=== PATIENT | female | born 1955 | race Caucasian/White ===

== ENCOUNTER → 2019-03-10 | Outpatient (CLI) | payer MEDICARE ==
--- NOTE | 2019-03-19 10:13 | MM ---
Reason for exam: screening (asymptomatic). Last mammogram was performed 1 year and 7 months ago. History: Patient is postmenopausal. Family history of breast cancer in 2 aunts. Took estrogen for 2 years beginning at age 40. Physical Findings: A clinical breast exam by your physician is recommended on an annual basis and results should be correlated with mammographic findings. MG Screening Mammo w CAD Bilateral CC and MLO view(s) were taken. Prior study comparison: August 18, 2017, mammogram. August 06, 2016, mammogram. There are scattered fibroglandular densities. Benign appearing bilateral calcifications. No suspicious abnormality. ASSESSMENT: Benign, BI-RAD 2 RECOMMENDATION: Routine screening mammogram of both breasts in 1 year.
== END | disposition home or self-care (01) ==
LOC: RADMAMWWP 07:27
PROVIDERS: ATTEND Family Medicine
DX: Z12.31 Encounter for screening mammogram for malignant neoplasm of breast (principal)
CPT/HCPCS: 77067

== ENCOUNTER → 2019-10-23 | Outpatient (CLI) | payer MEDICARE | END | disposition home or self-care (01) | LOC: LABWHC1 09:52 | PROVIDERS: ATTEND Surgery | DX: U07.1 COVID-19 (principal) | CPT/HCPCS: 87635 ==

== ENCOUNTER → 2019-10-25 | Day surgery (SDC) | payer MEDICARE ==
[2019-10-22 09:25] VITALS: BMI 32.7
[~2019-10-25] MED LIST: LACTATED RINGERS 1,000 ML IV SCH; LIDOCAINE 1% (10MG/ML) FOR IV START INTRADERMA PRN; PROPOFOL 10 MG/ML 20 ML VIAL IV ONE
[2019-10-25 07:58] VITALS: TEMP 98.5
[2019-10-25 08:00] LABS: Glucose,Whole Blood 171 mg/dL (75-99)
--- NOTE | 2019-10-25 08:50 | P.GSHP ---
History of Present Illness H&P Date: 10/25/19 Chief Complaint: GERD Is a 63-year-old female GERD. Patient presents today for EGD. Past Medical History Past Medical History: Diabetes Mellitus, GERD/Reflux, Hyperlipidemia, Hypertension, Mitral Valve Prolapse (MVP) Additional Past Medical History / Comment(s): Hx stomach ulcer; c/o burning in stomach for few months now. Hx elev liver enzymes, no known cause. History of Any Multi-Drug Resistant Organisms: None Reported Past Surgical History: Appendectomy, Hysterectomy, Joint Replacement, Orthopedic Surgery Additional Past Surgical History / Comment(s): EGD. Colonoscopy. Total Juvencio knees. CTR Rt wrist. Cataracts Past Anesthesia/Blood Transfusion Reactions: No Reported Reaction Smoking Status: Former smoker - Past Family History Father Family Medical History: Cancer Additional Family Medical History / Comment(s): stomach cancer Mother Sister(s) Family Medical History: Cancer, Deep Vein Thrombosis (DVT) Additional Family Medical History / Comment(s): Mother & Sisters x2 lung, 1 sister had brain cancer Brother(s) Family Medical History: Cancer Additional Family Medical History / Comment(s): lung cancer Medications and Allergies Home Medications Medication Instructions Recorded Confirmed Type Aspirin [Adult Low Dose Aspirin EC] 81 mg PO DAILY 09/09/19 10/25/19 History Cholecalciferol [Vitamin D3 (25 1,000 unit PO DAILY 09/09/19 10/25/19 History Mcg = 1000 Iu)] Citalopram Hydrobromide 40 mg PO DAILY 09/09/19 10/25/19 History [Citalopram HBr] Fenofibrate Nanocrystallized 145 mg PO DAILY 09/09/19 10/25/19 History [Fenofibrate] Lisinopril [Zestril] 10 mg PO DAILY 09/09/19 10/25/19 History Metoprolol Tartrate [Lopressor] 25 mg PO BID 09/09/19 10/25/19 History Multivitamins, Thera [Multivitamin 1 tab PO DAILY 09/09/19 10/25/19 History (formulary)] Omeprazole [PriLOSEC] 20 mg PO AC-BID 09/09/19 10/25/19 History Soy Isofla/Blk Cohosh/Mag Bark 155 mg PO DAILY 09/09/19 10/25/19 History [Estroven 155 mg Capsule] metFORMIN HCL [Glucophage] 1,000 mg PO HS 09/09/19 10/25/19 History Allergies Allergy/AdvReac Type Severity Reaction Status Date / Time hydrocodone Allergy Itching Verified 10/25/19 07:37 morphine Allergy Nausea & Verified 10/25/19 07:37 Vomiting Penicillins Allergy Rash/Hives Verified 10/25/19 07:37 Sulfa (Sulfonamide Allergy Rash/Hives Verified 10/25/19 07:37 Antibiotics) vancomycin Allergy Dyspnea Verified 10/25/19 07:37 Surgical - Exam Vital Signs Temp Pulse Resp BP Pulse Ox 98.5 F 78 18 144/76 97 10/25/19 07:56 10/25/19 07:56 10/25/19 07:56 10/25/19 07:56 10/25/19 07:56 - General well developed, well nourished, no distress - Eyes PERRL - ENT normal pinna - Neck no masses - Respiratory normal expansion - Cardiovascular Rhythm: regular - Abdomen Abdomen: soft, non tender Results - Labs Abnormal Lab Results - Last 24 Hours (Table) 10/25/19 Range/Units 07:54 POC Glucose (mg/dL) 171 H (75-99) mg/dL Assessment and Plan Assessment: GERD. We'll perform EGD.
--- NOTE | 2019-10-25 08:57 | P.OP ---
Date of Procedure: 10/25/19 Preoperative Diagnosis: GERD Postoperative Diagnosis: Antral gastritis Mild esophagitis Procedure(s) Performed: EGD Anesthesia: MAC Surgeon: Jairo Rodríguez Pathology: other (Antrum, esophagus) Condition: stable Disposition: PACU Description of Procedure: Patient's placed on the endoscopy table in the lateral position. She received IV sedation. The gastroscope placed oropharynx and passed in the esophagus into the stomach. Scope then placed through the pylorus. The first and second portion of the duodenum appeared normal. Scope summer back antrum was mildly inflamed. A biopsies performed. The scope was unretroflexed and remainder of the stomach appeared normal. Patient did very small hiatal hernia. The GE junction was at 39 cm. The distal esophagus appeared mildly inflamed a biopsies performed. The proximal esophagus appeared normal. Scope withdrawn for patient.
[2019-10-25 09:01] VITALS: RESP 17
[2019-10-25 09:17] VITALS: BP 134/87; PULSE 73
--- NOTE | 2019-10-25 12:32 | NM ---
EXAMINATION TYPE: NM hepatobiliary w CCK DATE OF EXAM: 10/25/2019 COMPARISON: NONE HISTORY: Indigestion and abdominal pain. TECHNIQUE: After the intravenous administration of 4.14 mCi Tc 99m Mebrofenin hepatobiliary scintigra phy is performed. Immediate images post injection. FINDINGS: There is satisfactory initial accumulation of tracer by the liver. The gallbladder is visualized wit hin 10 minutes. At one hour CCK was administered, patient was injected with 1.9 mcg of Kinevac, and g allbladder ejection fraction is calculated at 13 %, abnormally low. Therefore there is no scintigrap hic evidence of cystic or common bile duct obstruction to suggest acute cholecystitis or gallbladder dyskinesia. IMPRESSION: Biliary dyskinesia with abnormally low biliary ejection fraction of 13%. No scintigraphic evidence of acute or chronic cholecystitis.
== END ==
LOC: ORWHC2ENDO 07:29
PROVIDERS: ATTEND Surgery
DX: K29.50 Unspecified chronic gastritis without bleeding (principal); K21.0 Gastro-esophageal reflux disease with esophagitis; K44.9 Diaphragmatic hernia without obstruction or gangrene; I10 Essential (primary) hypertension; I34.1 Nonrheumatic mitral (valve) prolapse; E78.5 Hyperlipidemia, unspecified; E11.9 Type 2 diabetes mellitus without complications; Z88.0 Allergy status to penicillin; Z88.2 Allergy status to sulfonamides; Z88.1 Allergy status to other antibiotic agents; Z88.5 Allergy status to narcotic agent; Z79.82 Long term (current) use of aspirin; Z79.899 Other long term (current) drug therapy; Z79.84 Long term (current) use of oral hypoglycemic drugs; Z87.11 Personal history of peptic ulcer disease; Z90.710 Acquired absence of both cervix and uterus; Z90.49 Acquired absence of other specified parts of digestive tract; Z96.653 Presence of artificial knee joint, bilateral; Z98.49 Cataract extraction status, unspecified eye; Z87.891 Personal history of nicotine dependence; K82.8 Other specified diseases of gallbladder; Z80.0 Family history of malignant neoplasm of digestive organs; Z82.49 Family history of ischemic heart disease and other diseases of the circulatory system; Z80.1 Family history of malignant neoplasm of trachea, bronchus and lung; Z80.8 Family history of malignant neoplasm of other organs or systems
CPT/HCPCS: 78227; 43239; A9537; J2805; J2704; 88305

== ENCOUNTER → 2019-11-05 | Outpatient (CLI) | payer MEDICARE | END | disposition home or self-care (01) | LOC: LABWHC1 09:39 | PROVIDERS: ATTEND Surgery | DX: Z11.59 Encounter for screening for other viral diseases (principal) | CPT/HCPCS: 87635 ==

== ENCOUNTER 2019-11-08 07:57 | Day surgery (SDC) | payer MEDICARE ==
[2019-11-05 13:15] VITALS: BMI 33.3
[~2019-11-08 07:57] MED LIST changes: +ACETAMINOPHEN TAB 500 MG TAB PO ONE; +DEXAMETHASONE SOD PHOSPHATE 10 MG/ML 1 ML VIAL IV ONE; +HEPARIN SODIUM,PORCINE 5,000 UNIT/ML 1 ML VIAL SQ ONE; +HYDROmorphone 0.5 MG/0.5 ML SYRINGE IVP PRN; -LIDOCAINE 1% (10MG/ML) FOR IV START INTRADERMA PRN; +ONDANSETRON 4 MG/2 ML VIAL IVP ONE; -PROPOFOL 10 MG/ML 20 ML VIAL IV ONE
[2019-11-08 08:25] LABS: Glucose,Whole Blood 195 mg/dL (75-99)
--- NOTE | 2019-11-08 08:41 | P.GSHP ---
History of Present Illness H&P Date: 11/08/19 Chief Complaint: Right upper quadrant pain This is a 64-year-old female who presents today for laparoscopic cholecystectomy. Patient's a complete right quadrant pain. Her recent HIDA scan shows abnormal ejection fraction of 13% consistent with chronic cholecystitis. Past Medical History Past Medical History: Diabetes Mellitus, GERD/Reflux, Hyperlipidemia, Hypertension, Mitral Valve Prolapse (MVP) Additional Past Medical History / Comment(s): Hx stomach ulcer; c/o burning in stomach for few months now. Hx elev liver enzymes, no known cause. History of Any Multi-Drug Resistant Organisms: None Reported Past Surgical History: Appendectomy, Hysterectomy, Joint Replacement, Orthopedic Surgery Additional Past Surgical History / Comment(s): EGD. Colonoscopy. Total Juvencoi knees. CTR Rt wrist. Cataracts removed, recent EGD Past Anesthesia/Blood Transfusion Reactions: No Reported Reaction Past Psychological History: No Psychological Hx Reported Smoking Status: Former smoker Past Alcohol Use History: None Reported Additional Past Alcohol Use History / Comment(s): Smoked for 2 years in 1979. Past Drug Use History: None Reported - Past Family History Father Family Medical History: Cancer Additional Family Medical History / Comment(s): stomach cancer Mother Sister(s) Family Medical History: Cancer, Deep Vein Thrombosis (DVT) Additional Family Medical History / Comment(s): Mother & Sisters x2 lung, 1 sister had brain cancer Brother(s) Family Medical History: Cancer Additional Family Medical History / Comment(s): lung cancer Medications and Allergies Home Medications Medication Instructions Recorded Confirmed Type Aspirin [Adult Low Dose Aspirin EC] 81 mg PO DAILY 09/09/19 11/05/19 History Cholecalciferol [Vitamin D3 (25 1,000 unit PO DAILY 09/09/19 11/05/19 History Mcg = 1000 Iu)] Citalopram Hydrobromide 40 mg PO DAILY 09/09/19 11/05/19 History [Citalopram HBr] Fenofibrate Nanocrystallized 145 mg PO DAILY 09/09/19 11/05/19 History [Fenofibrate] Lisinopril [Zestril] 10 mg PO DAILY 09/09/19 11/05/19 History Metoprolol Tartrate [Lopressor] 50 mg PO BID 09/09/19 11/05/19 History Multivitamins, Thera [Multivitamin 1 tab PO DAILY 09/09/19 11/05/19 History (formulary)] Omeprazole [PriLOSEC] 20 mg PO AC-BID 09/09/19 11/05/19 History Soy Isofla/Blk Cohosh/Mag Bark 155 mg PO DAILY 09/09/19 11/05/19 History [Estroven 155 mg Capsule] metFORMIN HCL [Glucophage] 1,000 mg PO HS 09/09/19 11/05/19 History Allergies Allergy/AdvReac Type Severity Reaction Status Date / Time alendronate sodium Allergy Severe Swelling Verified 11/08/19 08:37 [From Fosamax] hydrocodone Allergy Itching Verified 11/05/19 12:58 morphine Allergy Nausea & Verified 11/05/19 12:58 Vomiting Penicillins Allergy Rash/Hives Verified 11/05/19 12:58 Sulfa (Sulfonamide Allergy Rash/Hives Verified 11/05/19 12:58 Antibiotics) vancomycin Allergy Dyspnea Verified 11/05/19 12:58 Surgical - Exam - General well developed, well nourished - Eyes PERRL - ENT normal pinna - Neck no masses - Respiratory normal expansion - Cardiovascular Rhythm: regular - Abdomen Abdomen: soft, non tender Results - Labs Abnormal Lab Results - Last 24 Hours (Table) 11/08/19 Range/Units 08:23 POC Glucose (mg/dL) 195 H (75-99) mg/dL Assessment and Plan Assessment: Right quadrant pain Chronic cholecystitis We'll perform laparoscopic cholecystectomy
[2019-11-08] MEDS ORDERED: MIDAZOLAM 2 MG/2 ML VIAL ONE (08:46)
[2019-11-08] MEDS ORDERED: LIDOCAINE 1% INJ 10MG/ML (20 ML MDV) ONE (08:46)
[2019-11-08] MEDS ORDERED: ALFENTANIL 500 MCG/ML 2 ML AMP IV ONE (08:46)
[2019-11-08] MEDS ORDERED: PROPOFOL 10 MG/ML 20 ML VIAL IV ONE (08:46)
[2019-11-08] MEDS ORDERED: ROCURONIUM BROMIDE 10 MG/ML 5 ML VIAL IV ONE (08:46)
[2019-11-08] MEDS ORDERED: SUCCINYLCHOLINE CHLORIDE 100 MG/5 ML SYR IV ONE (08:46)
[2019-11-08] MEDS ORDERED: GLYCOPYRROLATE 0.2 MG/ML 2 ML VIAL ONE (08:46)
[2019-11-08] MEDS ORDERED: NEOSTIGMINE 1 MG/ML 10 ML VIAL ONE (08:46)
[2019-11-08] MEDS ORDERED: BUPIVACAIN-EPI 0.25%-1:200,000 30 ML VIAL SQ ONE (09:03)
--- NOTE | 2019-11-08 09:31 | P.OP ---
Date of Procedure: 11/08/19 Preoperative Diagnosis: Cholecystitis Postoperative Diagnosis: Cholecystitis Cirrhosis Procedure(s) Performed: Laparoscopic cholecystectomy Liver biopsy Anesthesia: ANAT Surgeon: Jairo Rodríguez Estimated Blood Loss (ml): 5 Pathology: other (Gallbladder, liver biopsy) Condition: stable Disposition: PACU Description of Procedure: The patient was placed on the operating table. The patient received a general endotracheal tube anesthesia. The patients abdomen was prepped and draped in the usual sterile fashion. Through an infraumbilical stab incision, the fascia of the anterior abdominal wall was grasped with a pair of Kochers and then the Veress needle was placed in the peritoneal cavity. Position of the Veress needle was confirmed with positive drop test. The abdomen was then insufflated. After adequate insufflation, the 10 mm trocar was placed in the peritoneal cavity. Following this the laparoscope was placed in the peritoneal cavity. The patient was placed in the head-up, right side up position and then a 5 mm trocar was placed in the right lateral and right subcostal position under direct visualization. A 8 mm trocar was placed in the epigastric position. The gallbladder was grasped in the fundus and infundibulum. Traction on the gallbladder was placed in the lateral and the cephalad positions. The triangle of Calot was visualized.. The cystic duct was bluntly dissected until the union of the cystic duct and common bile duct was seen. A critical view of safety was achieved. The cystic duct was then divided and sealed with the Harmonic scissors. A PDS Endoloop was then placed throughout the cystic duct stump. The cystic artery divided and sealed with the Harmonic scissors. The gallbladder was then removed from the liver bed using Harmonic scissors. The gallbladder was then extracted through the epigastric port site. Operative field was checked for any bleeding spots and Harmonic scissors was used to coagulate the liver bed. The liver appeared to be cirrhotic. A photograph of liver was performed. A liver biopsy using the tooth biopsy forcep was performed. Left cautery was used for hemostasis. The specimen sent to pathology. The abdomen was irrigated. The trocars were removed. The skin was closed using interrupted 3-0 Vicryl suture. Dermabond dressing were applied. The patient tolerated the procedure well.
[2019-11-08 09:38] VITALS: TEMP 97.5
[2019-11-08 09:40] LABS: Glucose,Whole Blood 202 mg/dL (75-99)
[2019-11-08] MEDS ORDERED: KETOROLAC 30 MG/ML 1 ML VIAL IVP ONE (09:46)
[2019-11-08] MEDS ORDERED: LACTATED RINGERS 1,000 ML IV ONE ×2 (09:47)
[2019-11-08 12:41] VITALS: RESP 16
[2019-11-08 12:42] VITALS: BP 127/66; PULSE 83
== END 2019-11-08 13:11 | disposition home or self-care (01) ==
LOC: OR 07:57
PROVIDERS: ATTEND Surgery
DX: K81.1 Chronic cholecystitis (principal); K21.9 Gastro-esophageal reflux disease without esophagitis; E11.9 Type 2 diabetes mellitus without complications; E78.5 Hyperlipidemia, unspecified; I10 Essential (primary) hypertension; I34.1 Nonrheumatic mitral (valve) prolapse; Z87.11 Personal history of peptic ulcer disease; Z96.653 Presence of artificial knee joint, bilateral; Z98.49 Cataract extraction status, unspecified eye; Z98.890 Other specified postprocedural states; Z87.891 Personal history of nicotine dependence; Z80.0 Family history of malignant neoplasm of digestive organs; Z80.1 Family history of malignant neoplasm of trachea, bronchus and lung; Z80.8 Family history of malignant neoplasm of other organs or systems; Z82.49 Family history of ischemic heart disease and other diseases of the circulatory system; Z79.84 Long term (current) use of oral hypoglycemic drugs; Z79.82 Long term (current) use of aspirin; Z79.899 Other long term (current) drug therapy; Z88.1 Allergy status to other antibiotic agents; Z88.5 Allergy status to narcotic agent; Z88.0 Allergy status to penicillin; Z88.8 Allergy status to other drugs, medicaments and biological substances
CPT/HCPCS: 47562; 47379; J2250; J1644; J1100; J2710; J0690; J2405; J2001; J1885; J0330; J2704; J1170

== ENCOUNTER 2020-10-02 13:21 | Emergency (ER) | payer MEDICARE ==
[2020-10-02] MEDS ORDERED: IBUPROFEN 600 MG TAB PO STA (14:19)
[2020-10-02] MEDS ORDERED: SODIUM CHLORIDE 0.9% 1,000 ML IV STA (14:19)
[2020-10-02] MEDS ORDERED: ACETAMINOPHEN TAB 325 MG TAB PO STA (14:19)
--- NOTE | 2020-10-02 14:32 | ED ---
Weakness HPI - General Chief complaint: Weakness Stated complaint: SOB,nausea Time Seen by Provider: 10/02/20 14:01 Source: patient, RN notes reviewed Mode of arrival: wheelchair Limitations: no limitations - History of Present Illness Initial comments: Patient is a 64-year-old female that presents to emergency department complaining of generalized weakness, muscle aches and just feeling under the weather. She notes that for the past 7 days she has been feeling under the weather with shortness of breath and muscle aches. She notes that she did test negative for Covid once approximate 7 days ago. Since then she's noted that her symptoms have gradually increased which made her decide to come to the emergency room to get further evaluated. She was laying in bed in no apparent distress or pain during the exam interview, mildly short of breath but able to speak full sentences. She denied any pain or discomfort other than generalized muscle a ches. She denied any chest pain headache nausea vomiting diarrhea constipation fever fatigue chills. - Related Data Home Medications Medication Instructions Recorded Confirmed Aspirin [Adult Low Dose Aspirin EC] 81 mg PO DAILY 09/09/19 10/02/20 Cholecalciferol [Vitamin D3 (25 1,000 unit PO DAILY 09/09/19 10/02/20 Mcg = 1000 Iu)] Citalopram Hydrobromide 40 mg PO DAILY 09/09/19 10/02/20 [Citalopram HBr] Fenofibrate Nanocrystallized 145 mg PO DAILY 09/09/19 10/02/20 [Fenofibrate] Multivitamins, Thera [Multivitamin 1 tab PO DAILY 09/09/19 10/02/20 (formulary)] Omeprazole [PriLOSEC] 20 mg PO DAILY PRN 09/09/19 10/02/20 lisinopriL [Zestril] 10 mg PO DAILY 09/09/19 10/02/20 metFORMIN HCL [Glucophage] 500 mg PO BID 09/09/19 10/02/20 Metoprolol Succinate [Toprol XL] 50 mg PO BID 10/02/20 10/02/20 Allergies Allergy/AdvReac Type Severity Reaction Status Date / Time alendronate sodium Allergy Severe Swelling Verified 10/02/20 16:57 [From Fosamax] hydrocodone Allergy Itching Verified 10/02/20 16:57 morphine Allergy Nausea & Verified 10/02/20 16:57 Vomiting Penicillins Allergy Rash/Hives Verified 10/02/20 16:57 Sulfa (Sulfonamide Allergy Rash/Hives Verified 10/02/20 16:57 Antibiotics) vancomycin Allergy Dyspnea Verified 10/02/20 16:57 Review of Systems ROS Statement: Those systems with pertinent positive or pertinent negative responses have been documented in the HPI. ROS Other: All systems not noted in ROS Statement are negative. Past Medical History Past Medical History: Diabetes Mellitus, GERD/Reflux, Hyperlipidemia, Hypertension, Liver Disease, Mitral Valve Prolapse (MVP) Additional Past Medical History / Comment(s): Hx stomach ulcer; c/o burning in stomach for few months now. Hx elev liver enzymes, no known cause. History of Any Multi-Drug Resistant Organisms: None Reported Past Surgical History: Cholecystectomy Additional Past Surgical History / Comment(s): EGD. Colonoscopy. Total Juvencio knees. CTR Rt wrist. Cataracts Past Anesthesia/Blood Transfusion Reactions: No Reported Reaction Past Psychological History: No Psychological Hx Reported Smoking Status: Former smoker Past Alcohol Use History: None Reported Past Drug Use History: None Reported - Past Family History Father Family Medical History: Cancer Additional Family Medical History / Comment(s): stomach cancer Mother Sister(s) Family Medical History: Cancer, Deep Vein Thrombosis (DVT) Additional Family Medical History / Comment(s): Mother & Sisters x2 lung, 1 sister had brain cancer Brother(s) Family Medical History: Cancer Additional Family Medical History / Comment(s): lung cancer General Exam Limitations: no limitations General appearance: alert, in no apparent distress Head exam: Present: atraumatic, normocephalic, normal inspection Eye exam: Present: normal appearance, PERRL, EOMI. Absent: scleral icterus, conjunctival injection, periorbital swelling Neck exam: Present: normal inspection. Absent: tenderness, meningismus, lymphadenopathy Respiratory exam: Present: normal lung sounds bilaterally. Absent: respiratory distress, wheezes, rales, rhonchi, stridor Cardiovascular Exam: Present: regular rate, normal rhythm, normal heart sounds. Absent: systolic murmur, diastolic murmur, rubs, gallop, clicks GI/Abdominal exam: Present: soft, normal bowel sounds. Absent: distended, tenderness, guarding, rebound, rigid Extremities exam: Present: normal inspection, full ROM, normal capillary refill. Absent: tenderness, pedal edema, joint swelling, calf tenderness Neurological exam: Present: alert, oriented X3, CN II-XII intact Psychiatric exam: Present: normal affect, normal mood Skin exam: Present: warm, dry, intact, normal color. Absent: rash Course Vital Signs 10/02/20 10/02/20 13:23 14:12 Temperature 97.8 F Pulse Rate 89 84 Respiratory 22 24 Rate Blood Pressure 110/71 151/78 O2 Sat by Pulse 94 L 92 L Oximetry EKG Findings - EKG Comments: EKG Findings:: Ventricular rate 84 bpm, KY interval 148 ms, QRS duration 92 ms, QT/QTc 404/477 ms, PRT axes 49/-51/14. Normal sinus rhythm, left axis deviation, nonspecific ST abnormality, abnormal ECG. Medical Decision Making - Medical Decision Making Patient is a 64-year-old female complaining of shortness of breath in general muscle aches last week. Labs, chest x-ray, Covid test, EKG, school lunch monitor, 1 L normal saline, 650 mg of Tylenol, 600 mg Motrin ordered. Patient is saturating at 94 on room air while sitting up in bed. Covid test positive. Line patient informed that she meets criteria for monoclonal antibody therapy and wishes to undergo IV infusion. Case discussed with Dr. Sorenson, patient can discharge home after IV infusion monoclonal antibody. - Lab Data Result diagrams: 10/02/20 13:33 10/02/20 13:33 Lab Results 10/02/20 10/02/20 10/02/20 Range/Units 13:33 13:33 13:33 WBC 5.7 (3.8-10.6) k/uL RBC 4.45 (3.80-5.40) m/uL Hgb 14.8 (11.4-16.0) gm/dL Hct 41.3 (34.0-46.0) % MCV 92.9 (80.0-100.0) fL MCH 33.2 (25.0-35.0) pg MCHC 35.7 (31.0-37.0) g/dL RDW 12.8 (11.5-15.5) % Plt Count 204 (150-450) k/uL MPV 7.4 Neutrophils % 72 % Lymphocytes % 19 % Monocytes % 6 % Eosinophils % 0 % Basophils % 1 % Neutrophils # 4.1 (1.3-7.7) k/uL Lymphocytes # 1.1 (1.0-4.8) k/uL Monocytes # 0.4 (0-1.0) k/uL Eosinophils # 0.0 (0-0.7) k/uL Basophils # 0.0 (0-0.2) k/uL PT 10.5 (9.0-12.0) sec INR 1.0 (<1.2) APTT 24.4 (22.0-30.0) sec D-Dimer 0.47 (<0.60) mg/L FEU Sodium (137-145) mmol/L Potassium (3.5-5.1) mmol/L Chloride (98-107) mmol/L Carbon Dioxide (22-30) mmol/L Anion Gap mmol/L BUN (7-17) mg/dL Creatinine (0.52-1.04) mg/dL Est GFR (CKD-EPI)AfAm (>60 ml/min/1.73 sqM) Est GFR (CKD-EPI)NonAf (>60 ml/min/1.73 sqM) Glucose (74-99) mg/dL Plasma Lactic Acid Darren (0.7-2.0) mmol/L Calcium (8.4-10.2) mg/dL Magnesium (1.6-2.3) mg/dL Total Bilirubin (0.2-1.3) mg/dL AST (14-36) U/L ALT (4-34) U/L Alkaline Phosphatase (38-126) U/L Lactate Dehydrogenase (313-618) U/L Troponin I (0.000-0.034) ng/mL C-Reactive Protein (<10.0) mg/L Total Protein (6.3-8.2) g/dL Albumin (3.5-5.0) g/dL Urine Color Light Brown Urine Appearance Turbid H (Clear) Urine pH 6.0 (5.0-8.0) Ur Specific Jenner 1.026 (1.001-1.035) Urine Protein 1+ H (Negative) Urine Glucose (UA) Trace H (Negative) Urine Ketones Negative (Negative) Urine Blood Negative (Negative) Urine Nitrite Negative (Negative) Urine Bilirubin Negative (Negative) Urine Urobilinogen 3.0 (<2.0) mg/dL Ur Leukocyte Esterase Negative (Negative) Urine RBC 3 (0-5) /hpf Urine WBC 8 H (0-5) /hpf Ur Squamous Epith Cells 5 H (0-4) /hpf Amorphous Sediment Rare H (None) /hpf Urine Mucus Many H (None) /hpf Coronavirus (PCR) (Not Detectd) 10/02/20 10/02/20 10/02/20 Range/Units 13:33 13:33 14:34 WBC (3.8-10.6) k/uL RBC (3.80-5.40) m/uL Hgb (11.4-16.0) gm/dL Hct (34.0-46.0) % MCV (80.0-100.0) fL MCH (25.0-35.0) pg MCHC (31.0-37.0) g/dL RDW (11.5-15.5) % Plt Count (150-450) k/uL MPV Neutrophils % % Lymphocytes % % Monocytes % % Eosinophils % % Basophils % % Neutrophils # (1.3-7.7) k/uL Lymphocytes # (1.0-4.8) k/uL Monocytes # (0-1.0) k/uL Eosinophils # (0-0.7) k/uL Basophils # (0-0.2) k/uL PT (9.0-12.0) sec INR (<1.2) APTT (22.0-30.0) sec D-Dimer (<0.60) mg/L FEU Sodium 136 L (137-145) mmol/L Potassium 4.3 (3.5-5.1) mmol/L Chloride 99 (98-107) mmol/L Carbon Dioxide 24 (22-30) mmol/L Anion Gap 13 mmol/L BUN 15 (7-17) mg/dL Creatinine 0.63 (0.52-1.04) mg/dL Est GFR (CKD-EPI)AfAm >90 (>60 ml/min/1.73 sqM) Est GFR (CKD-EPI)NonAf >90 (>60 ml/min/1.73 sqM) Glucose 216 H (74-99) mg/dL Plasma Lactic Acid Darren 2.9 H* (0.7-2.0) mmol/L Calcium 9.5 (8.4-10.2) mg/dL Magnesium 1.7 (1.6-2.3) mg/dL Total Bilirubin 1.0 (0.2-1.3) mg/dL AST 68 H (14-36) U/L ALT 57 H (4-34) U/L Alkaline Phosphatase 71 (38-126) U/L Lactate Dehydrogenase 708 H (313-618) U/L Troponin I <0.012 (0.000-0.034) ng/mL C-Reactive Protein 29.8 H (<10.0) mg/L Total Protein 6.8 (6.3-8.2) g/dL Albumin 4.0 (3.5-5.0) g/dL Urine Color Urine Appearance (Clear) Urine pH (5.0-8.0) Ur Specific Jenner (1.001-1.035) Urine Protein (Negative) Urine Glucose (UA) (Negative) Urine Ketones (Negative) Urine Blood (Negative) Urine Nitrite (Negative) Urine Bilirubin (Negative) Urine Urobilinogen (<2.0) mg/dL Ur Leukocyte Esterase (Negative) Urine RBC (0-5) /hpf Urine WBC (0-5) /hpf Ur Squamous Epith Cells (0-4) /hpf Amorphous Sediment (None) /hpf Urine Mucus (None) /hpf Coronavirus (PCR) (Not Detectd) 10/02/20 Range/Units 16:32 WBC (3.8-10.6) k/uL RBC (3.80-5.40) m/uL Hgb (11.4-16.0) gm/dL Hct (34.0-46.0) % MCV (80.0-100.0) fL MCH (25.0-35.0) pg MCHC (31.0-37.0) g/dL RDW (11.5-15.5) % Plt Count (150-450) k/uL MPV Neutrophils % % Lymphocytes % % Monocytes % % Eosinophils % % Basophils % % Neutrophils # (1.3-7.7) k/uL Lymphocytes # (1.0-4.8) k/uL Monocytes # (0-1.0) k/uL Eosinophils # (0-0.7) k/uL Basophils # (0-0.2) k/uL PT (9.0-12.0) sec INR (<1.2) APTT (22.0-30.0) sec D-Dimer (<0.60) mg/L FEU Sodium (137-145) mmol/L Potassium (3.5-5.1) mmol/L Chloride (98-107) mmol/L Carbon Dioxide (22-30) mmol/L Anion Gap mmol/L BUN (7-17) mg/dL Creatinine (0.52-1.04) mg/dL Est GFR (CKD-EPI)AfAm (>60 ml/min/1.73 sqM) Est GFR (CKD-EPI)NonAf (>60 ml/min/1.73 sqM) Glucose (74-99) mg/dL Plasma Lactic Acid Darren (0.7-2.0) mmol/L Calcium (8.4-10.2) mg/dL Magnesium (1.6-2.3) mg/dL Total Bilirubin (0.2-1.3) mg/dL AST (14-36) U/L ALT (4-34) U/L Alkaline Phosphatase (38-126) U/L Lactate Dehydrogenase (313-618) U/L Troponin I (0.000-0.034) ng/mL C-Reactive Protein (<10.0) mg/L Total Protein (6.3-8.2) g/dL Albumin (3.5-5.0) g/dL Urine Color Urine Appearance (Clear) Urine pH (5.0-8.0) Ur Specific Jenner (1.001-1.035) Urine Protein (Negative) Urine Glucose (UA) (Negative) Urine Ketones (Negative) Urine Blood (Negative) Urine Nitrite (Negative) Urine Bilirubin (Negative) Urine Urobilinogen (<2.0) mg/dL Ur Leukocyte Esterase (Negative) Urine RBC (0-5) /hpf Urine WBC (0-5) /hpf Ur Squamous Epith Cells (0-4) /hpf Amorphous Sediment (None) /hpf Urine Mucus (None) /hpf Coronavirus (PCR) Detected A (Not Detectd) - EKG Data -: EKG Interpreted by Wy EKG shows normal: sinus rhythm, axis (Left axis deviation) Rate: normal EKG Comments: Ventricular rate 84 bpm, KY interval 148 ms, QRS duration 92 ms, QT/QTc 404/477 ms, PRT axes 49/-51/14. Normal sinus rhythm, left axis deviation, nonspecific ST abnormality, abnormal ECG. - Radiology Data Radiology results: report reviewed, image reviewed Chest x-ray: The lungs are clear and there is no pneumothorax, pleural effusion, or focal pneumonia. Course and interstitium. Heart size normal. Degenerative change of the spine. Mild hyperinflation. Correlate for interstitial pneumonia. Disposition Clinical Impression: COVID-19 Disposition: HOME SELF-CARE Condition: Stable Instructions (If sedation given, give patient instructions): Coronavirus Disease 2019 (COVID-19) Additional Instructions: Please return to the Emergency Department if symptoms worsen or any other concer ns. Follow-up with primary care after the 10-14 day quarantine from symptom onset. Can take [id number] Tylenol Motrin for symptomatically control fever and muscle aches and pains. Increase oral fluid intake, rest, get plenty of nutrients. Is patient prescribed a controlled substance at d/c from ED?: No Referrals: Eugenie Waller DO [Primary Care Provider] - 1-2 days Time of Disposition: 17:42
--- NOTE | 2020-10-02 14:40 | XR ---
EXAMINATION TYPE: XR chest 2V DATE OF EXAM: 10/02/2020 COMPARISON: NONE TECHNIQUE: PA and lateral views submitted. HISTORY: Weakness shortness of breath FINDINGS: The lungs are clear and there is no pneumothorax, pleural effusion, or focal pneumonia. Coarsened i nterstitium. Heart size normal. Degenerative change of the spine. Mild hyperinflation. IMPRESSION: 1. Correlate for interstitial pneumonia.
[2020-10-02 15:20] LABS: Basophils % (A) 1 %; Eosinophils % (A) 0 %; HCT 41.3 % (34.0-46.0); HGB 14.8 gm/dL (11.4-16.0); Lymphocytes # (A) 1.1 k/uL (1.0-4.8); Lymphocytes % (A) 19 %; MCH 33.2 pg (25.0-35.0); MCHC 35.7 g/dL (31.0-37.0); MCV 92.9 fL (80.0-100.0); Mean Platelet Volume 7.4; Monocytes # (A) 0.4 k/uL (0-1.0); Monocytes % (A) 6 %; Neutrophils # (A) 4.1 k/uL (1.3-7.7); Neutrophils % (A) 72 %; Platelet Count 204 k/uL (150-450); RBC 4.45 m/uL (3.80-5.40); RDW 12.8 % (11.5-15.5); WBC 5.7 k/uL (3.8-10.6)
[2020-10-02 15:39] LABS: ALT 57 U/L (4-34); AST 68 U/L (14-36); African American GFR (CKD) >90 (>60 ml/min/1.73 sqM); Alkaline Phosphatase 71 U/L (38-126); Anion Gap 13 mmol/L; Blood Urea Nitrogen 15 mg/dL (7-17); C Reactive Protein 29.8 mg/L (<10.0); Calcium 9.5 mg/dL (8.4-10.2); Carbon Dioxide 24 mmol/L (22-30); Chloride 99 mmol/L (98-107); Glucose 216 mg/dL (74-99); LDH 708 U/L (313-618); Magnesium 1.7 mg/dL (1.6-2.3); Non-African American GFR(CKD) >90 (>60 ml/min/1.73 sqM); Potassium 4.3 mmol/L (3.5-5.1); Sodium 136 mmol/L (137-145); Total Protein 6.8 g/dL (6.3-8.2)
[2020-10-02 15:40] LABS: D-Dimer 0.47 mg/L FEU (<0.60); Partial Thromboplastin Time 24.4 sec (22.0-30.0); Prothrombin Time 10.5 sec (9.0-12.0)
[2020-10-02 16:17] LABS: Amorphous Sediment,Urine Rare /hpf; Appearance,Urine Turbid (Clear); Bilirubin,Urine Negative (Negative); Blood,Urine Negative (Negative); Color,Urine Light Brown; Glucose,Urine (UA) Trace (Negative); Ketones,Urine Negative (Negative); Leukocyte Esterase,Urine Negative (Negative); Mucus,Urine Many /hpf; Nitrite,Urine Negative (Negative); Protein,Urine 1+ (Negative); RBC,Urine 3 /hpf (0-5); Specific Gravity,Urine 1.026 (1.001-1.035); Squamous Epithelial Cell,Urine 5 /hpf (0-4); WBC,Urine 8 /hpf (0-5)
[2020-10-02] MEDS ORDERED: BAMLANIVIMAB (EUA) 700 MG, ETESEVIMAB (EUA) 1,400 MG in SODIUM CHLORIDE 0.9% 50 ML IVPB ONE (18:00)
[2020-10-02 19:32] VITALS: BP 108/70; PULSE 71; RESP 16; TEMP 98
== END 2020-10-02 19:42 | disposition home or self-care (01) ==
LOC: EC 13:21
DX: U07.1 COVID-19 (principal); E11.9 Type 2 diabetes mellitus without complications; K21.9 Gastro-esophageal reflux disease without esophagitis; I10 Essential (primary) hypertension; E78.5 Hyperlipidemia, unspecified; Z79.84 Long term (current) use of oral hypoglycemic drugs; Z79.82 Long term (current) use of aspirin; Z79.899 Other long term (current) drug therapy; Z88.1 Allergy status to other antibiotic agents; Z88.0 Allergy status to penicillin; Z88.2 Allergy status to sulfonamides; Z88.5 Allergy status to narcotic agent; Z88.8 Allergy status to other drugs, medicaments and biological substances; Z87.891 Personal history of nicotine dependence
CPT/HCPCS: 36415; 93005; 85379; 80053; 83605; 83615; 83735; 84484; 85025; 85610; 85730; 86140; 81001; 84145; 87635; 71046; 99285; 96365; 96361; Q0245

== ENCOUNTER 2021-05-10 06:49 | Day surgery (SDC) | payer MEDICARE ==
[2021-05-09 11:19] VITALS: BMI 32.3
[~2021-05-10 06:49] MED LIST changes: -ACETAMINOPHEN TAB 500 MG TAB PO ONE; -DEXAMETHASONE SOD PHOSPHATE 10 MG/ML 1 ML VIAL IV ONE; -HEPARIN SODIUM,PORCINE 5,000 UNIT/ML 1 ML VIAL SQ ONE; -HYDROmorphone 0.5 MG/0.5 ML SYRINGE IVP PRN; +LIDOCAINE 1% (10MG/ML) FOR IV START INTRADERMA PRN; -ONDANSETRON 4 MG/2 ML VIAL IVP ONE
[2021-05-10 07:25] VITALS: TEMP 96.4
[2021-05-10 07:26] LABS: Glucose,Whole Blood 149 mg/dL (75-99)
[2021-05-10] MEDS ORDERED: LIDOCAINE 1% INJ 10MG/ML (20 ML MDV) ONE (07:55)
[2021-05-10] MEDS ORDERED: PROPOFOL 10 MG/ML 20 ML VIAL IV ONE (07:55)
--- NOTE | 2021-05-10 07:59 | P.GSHP ---
History of Present Illness H&P Date: 05/10/21 Chief Complaint: GERD, history of colon polyps This a 65-year-old female who presents today for EGD and colonoscopy. She is should've GERD. She also history of colon polyps. She states her last colonoscopy was in [place] approximately 5 years ago. Past Medical History Past Medical History: Diabetes Mellitus, GERD/Reflux, Hyperlipidemia, Hypertension, Liver Disease, Mitral Valve Prolapse (MVP) Additional Past Medical History / Comment(s): Hx stomach ulcer; c/o burning in stomach for few months now. Hx elev liver enzymes-HAS CIRRHOSIS History of Any Multi-Drug Resistant Organisms: None Reported Past Surgical History: Cholecystectomy, Joint Replacement, Orthopedic Surgery Additional Past Surgical History / Comment(s): EGD. Colonoscopy. Total Juvencio knees. CTR BILAT WRIST. Cataracts-BILAT, Past Anesthesia/Blood Transfusion Reactions: No Reported Reaction Smoking Status: Former smoker - Past Family History Father Family Medical History: Cancer Additional Family Medical History / Comment(s): stomach cancer Mother Sister(s) Family Medical History: Cancer, Deep Vein Thrombosis (DVT) Additional Family Medical History / Comment(s): Mother & Sisters x2 lung, 1 sister had brain cancer Brother(s) Family Medical History: Cancer Additional Family Medical History / Comment(s): lung cancer Sister(s) Family Medical History: Cancer Additional Family Medical History / Comment(s): 2 SISTERS WITH CANCER Medications and Allergies Home Medications Medication Instructions Recorded Confirmed Type Aspirin [Adult Low Dose Aspirin EC] 81 mg PO DAILY 09/09/19 05/09/21 History Cholecalciferol [Vitamin D3 (25 1,000 unit PO DAILY 09/09/19 05/09/21 History Mcg = 1000 Iu)] Citalopram Hydrobromide 40 mg PO DAILY 09/09/19 05/09/21 History [Citalopram HBr] Fenofibrate Nanocrystallized 145 mg PO DAILY 09/09/19 05/09/21 History [Fenofibrate] Multivitamins, Thera [Multivitamin 1 tab PO DAILY 09/09/19 05/09/21 History (formulary)] Omeprazole [PriLOSEC] 20 mg PO DAILY PRN 09/09/19 05/09/21 History lisinopriL [Zestril] 10 mg PO DAILY 09/09/19 05/09/21 History metFORMIN HCL [Glucophage] 500 mg PO BID 09/09/19 05/09/21 History Metoprolol Succinate [Toprol XL] 50 mg PO BID 10/02/20 05/09/21 History glipiZIDE [Glucotrol] 10 mg PO AC-BRKFST 05/09/21 05/09/21 History Allergies Allergy/AdvReac Type Severity Reaction Status Date / Time alendronate sodium Allergy Severe Swelling Verified 05/10/21 07:12 [From Fosamax] hydrocodone Allergy Itching Verified 05/10/21 07:12 morphine Allergy Nausea & Verified 05/10/21 07:12 Vomiting Penicillins Allergy Rash/Hives Verified 05/10/21 07:12 Sulfa (Sulfonamide Allergy Rash/Hives Verified 05/10/21 07:12 Antibiotics) vancomycin Allergy Dyspnea Verified 05/10/21 07:12 Surgical - Exam Vital Signs Temp Pulse Resp BP Pulse Ox 96.4 F L 77 16 155/74 98 05/10/21 07:17 05/10/21 07:17 05/10/21 07:17 05/10/21 07:17 05/10/21 07:17 - General well developed, well nourished, no distress - Eyes PERRL - ENT normal pinna - Neck no masses - Respiratory normal expansion - Abdomen Abdomen: soft, non tender Results - Labs Abnormal Lab Results - Last 24 Hours (Table) 05/10/21 Range/Units 07:22 POC Glucose (mg/dL) 149 H (75-99) mg/dL Assessment and Plan Assessment: GERD we'll perform EGD. History of colon polyps. We'll perform colonoscopy.
--- NOTE | 2021-05-10 08:13 | P.OP ---
Date of Procedure: 05/10/21 Preoperative Diagnosis: GERD History of colon polyps Postoperative Diagnosis: Antral gastritis Small sliding hiatal hernia Minimal esophagitis Procedure(s) Performed: EGD Colonoscopy Anesthesia: MAC Surgeon: Jairo Rodríguez Pathology: other (Antrum, esophagus) Condition: stable Disposition: PACU Description of Procedure: The patient's placed on the endoscopy table in the lateral position. She received IV sedation. The gastroscope placed oropharynx passed in the esophagus into the stomach. Scope was then placed through the pylorus. The first and second portion of the duodenum appeared normal. Scope was then brought back the antrum this was mildly inflamed. A biopsies was performed. Scope was unretroflexed and remainder of the stomach appeared normal. There was a small sliding hiatal hernia. The GE junction was at 38 cm. The distal esophagus was minimal inflamed. A biopsies performed. The proximal esophagus appeared normal. Scope withdrawn for patient. Next digital rectal exam was performed there were external hemorrhoids. The flexible colonoscope was then placed patient anus passed throughout the entire colon. The ileocecal valve was visualized. The cecum, ascending and transverse colon appeared normal. The descending and sigmoid colon there was mild diverticulosis. Scope was then brought back the rectum this appeared normal. The scope withdrawn for patient. There were no polyps seen in the colon.
[2021-05-10 08:37] VITALS: BP 121/82; PULSE 74; RESP 16
== END 2021-05-10 09:11 | disposition home or self-care (01) ==
LOC: ORWHC2ENDO 06:49
PROVIDERS: ATTEND Surgery
DX: Z12.11 Encounter for screening for malignant neoplasm of colon (principal); K57.30 Diverticulosis of large intestine without perforation or abscess without bleeding; K20.0 Eosinophilic esophagitis; K44.9 Diaphragmatic hernia without obstruction or gangrene; K64.4 Residual hemorrhoidal skin tags; Z86.010 Personal history of colon polyps; K21.9 Gastro-esophageal reflux disease without esophagitis; E78.5 Hyperlipidemia, unspecified; I10 Essential (primary) hypertension; K74.60 Unspecified cirrhosis of liver; I34.1 Nonrheumatic mitral (valve) prolapse; Z87.11 Personal history of peptic ulcer disease; Z90.49 Acquired absence of other specified parts of digestive tract; Z96.653 Presence of artificial knee joint, bilateral; Z98.42 Cataract extraction status, left eye; Z98.41 Cataract extraction status, right eye; Z98.890 Other specified postprocedural states; Z87.891 Personal history of nicotine dependence; Z80.0 Family history of malignant neoplasm of digestive organs; Z82.49 Family history of ischemic heart disease and other diseases of the circulatory system; Z80.1 Family history of malignant neoplasm of trachea, bronchus and lung; Z80.8 Family history of malignant neoplasm of other organs or systems; Z79.84 Long term (current) use of oral hypoglycemic drugs; Z79.82 Long term (current) use of aspirin; Z79.899 Other long term (current) drug therapy; Z88.1 Allergy status to other antibiotic agents; Z88.5 Allergy status to narcotic agent; Z88.0 Allergy status to penicillin; Z88.2 Allergy status to sulfonamides
CPT/HCPCS: 88305; 43239; J2001; J2704; G0105

== ENCOUNTER → 2021-10-29 | Outpatient (CLI) | payer MEDICARE ==
--- NOTE | 2021-10-30 11:45 | MM ---
Reason for exam: screening (asymptomatic). Last mammogram was performed 2 years and 8 months ago. History: Patient is postmenopausal. Family history of breast cancer in 2 aunts. Took estrogen for 2 years beginning at age 40. Physical Findings: A clinical breast exam by your physician is recommended on an annual basis and results should be correlated with mammographic findings. MG Screening Mammo w CAD Bilateral CC and MLO view(s) were taken. Prior study comparison: March 10, 2019, bilateral MG screening mammo w CAD. August 18, 2017, mammogram. There are scattered fibroglandular densities. Benign appearing bilateral calcifications. There is chronic nodularity in the right breast, stable. No significant changes when compared with prior studies. ASSESSMENT: Benign, BI-RAD 2 RECOMMENDATION: Routine screening mammogram of both breasts in 1 year.
== END | disposition home or self-care (01) ==
LOC: RADMAMWWP 09:51
PROVIDERS: ATTEND Family Medicine
DX: Z12.31 Encounter for screening mammogram for malignant neoplasm of breast (principal)
CPT/HCPCS: 77067

== ENCOUNTER → 2023-05-14 | Outpatient (CLI) | payer MEDICARE ==
--- NOTE | 2023-05-19 01:09 | MM ---
Reason for Exam: Screening (asymptomatic). Last mammogram was performed 1 year(s) and 6 month(s) ago. Patient History: Menarche at age 9. First Full-Term at age 15. Left ovary removed at age 35. Right ovary removed at age 35. Hysterectomy at age 35. Postmenopausal. Estrogen for 2 years from age 40 until age 42. Maternal aunt had breast cancer. Paternal aunt had breast cancer. Risk Values: Aurelia 5 year model risk: 1.4%. NCI Lifetime model risk: 4.2%. Prior Study Comparison: 08/18/2017 Screening Mammogram, Unknown. 03/10/2019 Bilateral Screening Mammogram, [facility]. 10/29/2021 Bilateral Screening Mammogram, [facility]. Tissue Density: There are scattered fibroglandular densities. Findings: Analyzed By CAD. Chronic nodularity on the right. There is no suspicious group of microcalcifications or new suspicious mass in either breast. Overall Assessment: Benign, BI-RAD 2 Management: Screening Mammogram of both breasts in 1 year. . Patient should continue monthly self-breast exams. A clinical breast exam by your physician is recommended on an annual basis. This exam should not preclude additional follow-up of suspicious palpable abnormalities. Note on Aurelia scores and lifetime risk: 1. A Aurelia score greater than 3% is considered moderate risk. If this is the case, consider specialist referral to assess eligibility for a risk reducing agent. 2. If overall lifetime risk for the development of breast cancer is 20% or higher, the patient may qualify for future screening with alternating mammogram and breast MRI. Electronically signed and approved by: Antonio Alcaraz M.D. Radiologist
== END | disposition home or self-care (01) ==
LOC: RADMAMWWP 10:23
PROVIDERS: ATTEND Family Medicine
DX: Z12.31 Encounter for screening mammogram for malignant neoplasm of breast (principal); Z78.0 Asymptomatic menopausal state; Z80.3 Family history of malignant neoplasm of breast
CPT/HCPCS: 77063; 77067

== ENCOUNTER 2023-09-17 05:48 | Day surgery (SDC) | payer MEDICARE ==
[2023-08-29 11:47] VITALS: BMI 29.5
[2023-09-17] MEDS: SODIUM CHLORIDE 0.9% 500 ML 500 ML IV ONE (06:23)
[2023-09-17 06:25] LABS: Glucose,Whole Blood 138 mg/dL (70-110)
[2023-09-17 06:35] VITALS: TEMP 99.4
[2023-09-17] MEDS ORDERED: fentaNYL (PF) 50 MCG/ML 2 ML AMP ONE (06:52)
[2023-09-17] MEDS: BENZOCAINE SPRAY 1 CAN TOPICAL ONE ×2 (07:12→07:32)
[2023-09-17] MEDS: fentaNYL (PF) 50 MCG/ML 2 ML AMP IVP ONE (07:33)
[2023-09-17] MEDS: MIDAZOLAM 2 MG/2 ML VIAL IVP ONE (07:33)
[2023-09-17 08:25] VITALS: RESP 14
[2023-09-17 09:05] VITALS: BP 122/56; PULSE 62
--- NOTE | 2023-09-18 01:02 | ECHOT ---
TRANSESOPHAGEAL ECHOCARDIOGRAM INDICATION: Mitral and aortic regurgitation. PROCEDURE NOTE: After obtaining informed consent, transesophageal echocardiogram was performed in left lateral position using an Omniplane probe. Local and IV sedation were obtained using 2 mg of Versed and 25 mcg fentanyl. The patient tolerated the procedure well without any obvious immediate complications. Total sedation time was 10 minutes. FINDINGS: 1. Mitral valve shows mild prolapse of the anterior mitral leaflet. There is moderate central mitral regurgitation noted. Tricuspid valve appears anatomically normal. There is mild tricuspid regurgitation noted. Aortic valve is a 3-leaflet valve. There is mild aortic regurgitation noted. Ascending aorta appears mildly dilated. 2. Left ventricle has normal size and systolic function. Left atrium, right atrium, right ventricle appear enlarged. There is no evidence of fcdm-pa-hnjor shunt by color-flow Doppler or blwqu-mv-pruu shunt by agitated saline contrast study. There are mild to moderate atherosclerotic changes noted involving the aorta. CONCLUSIONS: Moderate central mitral regurgitation noted. MMODL / IJN: [id number] /
== END 2023-09-17 08:54 | disposition home or self-care (01) ==
LOC: CATHCVL 05:48
PROVIDERS: ATTEND Internal Medicine Cardiovascular Disease
DX: I34.0 Nonrheumatic mitral (valve) insufficiency (principal); I35.1 Nonrheumatic aortic (valve) insufficiency; I10 Essential (primary) hypertension; E11.69 Type 2 diabetes mellitus with other specified complication; E78.5 Hyperlipidemia, unspecified; Z87.891 Personal history of nicotine dependence; Z79.84 Long term (current) use of oral hypoglycemic drugs; Z79.899 Other long term (current) drug therapy; Z79.82 Long term (current) use of aspirin; Z88.0 Allergy status to penicillin; Z88.2 Allergy status to sulfonamides; Z88.5 Allergy status to narcotic agent; Z88.8 Allergy status to other drugs, medicaments and biological substances; Z88.7 Allergy status to serum and vaccine; Z88.3 Allergy status to other anti-infective agents
CPT/HCPCS: 93312; 93320; 93325; J2250; J3010

== ENCOUNTER → 2024-05-25 | Outpatient (CLI) | payer MEDICARE ==
--- NOTE | 2024-05-26 17:15 | MM ---
Reason for Exam: Screening (asymptomatic). Last mammogram was performed 1 year(s) and 1 month(s) ago. Patient History: Menarche at age 9. First Full-Term at age 15. Left ovary removed at age 35. Right ovary removed at age 35. Hysterectomy at age 35. Postmenopausal. Estrogen for 2 years from age 40 until age 42. Maternal aunt had breast cancer. Paternal aunt had breast cancer. Paternal grandmother had ovarian cancer at or over age 50. Maternal cousin had breast cancer. Risk Values: Aurelia 5 year model risk: 1.4%. NCI Lifetime model risk: 4.0%. Prior Study Comparison: 08/06/2016 Screening Mammogram, Unknown. 08/18/2017 Screening Mammogram, Unknown. 03/10/2019 Bilateral Screening Mammogram, [facility]. 10/29/2021 Bilateral Screening Mammogram, [facility]. 05/14/2023 Bilateral MG 3D screening mammo w/cad, [facility]. Tissue Density: There are scattered areas of fibroglandular density. Findings: Analyzed By CAD. Asymmetric densities anterior right breast are unchanged. There is no suspicious group of microcalcifications or new suspicious mass in either breast. Overall Assessment: Benign, BI-RAD 2 Management: Screening Mammogram of both breasts in 1 year. . Patient should continue monthly self-breast exams. A clinical breast exam by your physician is recommended on an annual basis. This exam should not preclude additional follow-up of suspicious palpable abnormalities. Note on Aurelia scores and lifetime risk: 1. A Aurelia score greater than 3% is considered moderate risk. If this is the case, consider specialist referral to assess eligibility for a risk reducing agent. 2. If overall lifetime risk for the development of breast cancer is 20% or higher, the patient may qualify for future screening with alternating mammogram and breast MRI. [facility], , 05/26/2024 5:12 PM. Electronically signed and approved by: Antonio Alcaraz M.D. Radiologist
== END | disposition home or self-care (01) ==
LOC: RADMAMWWP 11:02
PROVIDERS: ATTEND Family Medicine
DX: Z12.31 Encounter for screening mammogram for malignant neoplasm of breast (principal); Z78.0 Asymptomatic menopausal state; Z90.722 Acquired absence of ovaries, bilateral; Z80.3 Family history of malignant neoplasm of breast; R92.323 Mammographic fibroglandular density, bilateral breasts
CPT/HCPCS: 77063; 77067

== ENCOUNTER → 2024-12-29 | Outpatient (CLI) | payer MEDICARE ==
[2024-12-29 15:24] LABS: HCT 40.0 % (37.2-46.3); HGB 13.0 g/dL (12.0-15.0); MCH 30.7 pg (27.0-32.0); MCHC 32.5 g/dL (32.0-37.0); MCV 94.6 FL (80.0-97.0); NRBC Per 100 WBC 0 X 10*3/uL (0.00-0.01); Platelet Count 240 X 10*3/uL (140-440); RBC 4.23 X 10*6/uL (4.10-5.20); RDW 13.9 % (11.5-14.5); WBC 4.70 X 10*3/uL (4.50-10.00)
[2024-12-29 17:09] LABS: Anion Gap 14.40 mmol/L (4.00-12.00); BUN/Creat Ratio 24.50 Ratio (12.00-20.00); Blood Urea Nitrogen 14.7 mg/dL (9.0-27.0); Calcium 8.7 mg/dL (8.7-10.3); Carbon Dioxide 22.6 mmol/L (21.6-31.8); Chloride 104 mmol/L (96-109); Glucose 132 mg/dL (70-110); Potassium 4.6 mmol/L (3.5-5.5); Sodium 141 mmol/L (135-145)
[2024-12-29 17:54] LABS: NT-Pro-B-Type Natriuretic Pept 179 pg/mL (0-125)
== END | disposition home or self-care (01) ==
LOC: LABWHC1 10:01
PROVIDERS: ATTEND Internal Medicine Cardiovascular Disease
DX: I34.9 Nonrheumatic mitral valve disorder, unspecified (principal); I10 Essential (primary) hypertension
CPT/HCPCS: 36415; 80048; 83880; 85027

== ENCOUNTER → 2025-01-10 | Day surgery (SDC) | payer MEDICARE ==
[2025-01-07 12:47] VITALS: BMI 29.3
[~2025-01-10] MED LIST changes: +ALPRAZolam 0.25 MG TAB PO PRN; +ALPRAZolam 0.5 MG TAB PO PRN; -LACTATED RINGERS 1,000 ML IV SCH; -LIDOCAINE 1% (10MG/ML) FOR IV START INTRADERMA PRN; +NITROGLYCERIN SL TABS 0.4 MG TAB SUBLINGUAL PRN; +RX INFO: IV CONTRAST WAS GIVEN 1 EACH MISC MISCELLANE PRN; +SODIUM CHLORIDE 0.9% 1,000 ML IV SCH
[2025-01-10] MEDS: IV FLUID CONTINUATION 1,000 ML IV ONE (07:00)
[2025-01-10] MEDS: SODIUM CHLORIDE 0.9% 1,000 ML in EMPTY BAG 1 BAG IV SCH (07:00)
[2025-01-10 07:20] LABS: Glucose,Whole Blood 143 mg/dL (70-110)
[2025-01-10] MEDS: IV FLUID CONTINUATION 900 ML IV ONE (07:22)
[2025-01-10] MEDS: ASPIRIN 325 MG TAB PO ONE (07:28)
[2025-01-10] MEDS: BENZOCAINE SPRAY 1 EACH MM ONE ×2 (07:28→07:31)
[2025-01-10 07:31] VITALS: TEMP 98.4
[2025-01-10] MEDS: fentaNYL (PF) 50 MCG/1 ML VIAL IVP ONE (07:31)
[2025-01-10] MEDS: MIDAZOLAM 2 MG/2 ML VIAL IVP ONE ×2 (07:31→07:57)
[2025-01-10] MEDS: LIDOCAINE 1% INJ 10MG/ML (20 ML MDV) SQ ONE (07:44)
[2025-01-10] MEDS: VERAPAMIL SYRINGE (5 MG/10 ML) INTRAARTER ONE (07:48)
[2025-01-10] MEDS: HEPARIN SODIUM,PORCINE (1 ML) 2,500 UNIT in SODIUM CHLORIDE 0.9% 250 ML IRRIGATION PRN (07:52)
[2025-01-10] MEDS: HEPARIN SODIUM,PORCINE 10,000 UNIT in SODIUM CHLORIDE 0.9% 1,000 ML IRRIGATION PRN (07:52)
[2025-01-10] MEDS: HEPARIN SODIUM 1,000 UN/ML (10ML VL) IV ONE (07:52)
[2025-01-10] MEDS: IOPAMIDOL-370 100ML BTL INJ ONE (08:10)
--- NOTE | 2025-01-10 09:27 | ECHOS ---
STRESS ECHOCARDIOGRAM Procedure #1 STUDY: MANAS. INDICATION: Mitral regurgitation. PROCEDURE NOTE: After obtaining informed consent, transesophageal echocardiogram was performed in left lateral position using an Omniplane probe, local and IV sedation were obtained using Xylocaine spray, 1 mg of Versed, and 50 mcg of fentanyl. The patient tolerated the procedure well without any obvious immediate complications. Total sedation time was 10 minutes. FINDINGS: 1. Mitral valve; mitral valve shows thickened mitral valve leaflets with prolapse of the anterior mitral leaflet with moderate central to posteriorly directed mitral regurgitation. Left atrium appears enlarged. Right atrium and right ventricle seen within normal limits. 2. Left ventricle appears mildly enlarged with preserved LV function with an ejection fraction of 55%. Aortic valve is a 3-leaflet valve. There is mild aortic regurgitation. There is mild tricuspid regurgitation. 3. Interatrial septum; there is no evidence of fhpy-[id number]-vtxad shunt by color-flow Doppler or [id number]-ct-rdlk shunt by agitated saline contrast study. CONCLUSION: Moderate mitral regurgitation secondary to prolapse of the anterior mitral leaflet. Procedure #2. STUDY: Cardiac catheterization note. INDICATION: Mitral regurgitation. PROCEDURE NOTE: After obtaining informed consent, left heart catheterization and coronary angiogram were performed using standard Solange catheters. The patient tolerated the procedure well without any obvious immediate complications. Total sedation time was 15 minutes. Right radial artery access was obtained using Seldinger technique, 6-Z[place]an sheath was placed. Catheters and wires were floated into the ascending aorta under fluoroscopic guidance. The patient received verapamil and heparin per protocol and a TR band will be used for hemostasis. FINDINGS: 1. Hemodynamic; left ventricular end-diastolic pressure is 15 mm. There is no significant gradient across the aortic valve. 2. Left ventriculogram: Left ventriculogram is performed position shows mildly dilated left ventricle with normal LV function. Overall ejection fraction 55% with 1 to 2+ mitral regurgitation. 3. Angiographic data: a.Right coronary artery: Right coronary artery is a large dominant vessel and is free of significant stenosis. b.Left main coronary artery is a normal-sized vessel and free of disease. It divides into left anterior descending coronary artery and circumflex coronary artery. LAD and its branches circumflex coronary artery and its branches are free of significant stenosis. CONCLUSIONS: 1. Normal coronary arteries. 2. 1 to 2+ mitral regurgitation. MMODL / IJN: [id number] /
[2025-01-10 15:47] VITALS: BP 131/73; PULSE 58; RESP 14
== END ==
LOC: CATHCVL 06:10
PROVIDERS: ATTEND Internal Medicine Cardiovascular Disease
DX: I34.0 Nonrheumatic mitral (valve) insufficiency (principal); I34.1 Nonrheumatic mitral (valve) prolapse; I35.1 Nonrheumatic aortic (valve) insufficiency; I10 Essential (primary) hypertension; E78.2 Mixed hyperlipidemia; Z79.82 Long term (current) use of aspirin; Z79.84 Long term (current) use of oral hypoglycemic drugs; Z79.899 Other long term (current) drug therapy
CPT/HCPCS: 93312; 93320; 93325; J2250; J1644 ×3; J2003; Q9967; J3010; 93458